=== PATIENT | male | born 1955 | race Caucasian/White ===

== ENCOUNTER 2017-02-09 13:37 | Inpatient (IN) | payer OTHER ==
[~2017-02-09] VITALS: Ht 175.3 cm; Wt 108.6 kg
--- NOTE | 2017-02-09 13:55 | RAD ---
CT head without contrast History: Confusion, weakness. Comparison: 10/10/2016.. Procedure: Axial images are obtained of the head from the skull base through the vertex without IV contrast. Findings: The ventricles and sulci are normal for the patient's age. No mass-effect, intracranial mass, midline shift, hemorrhage or obvious acute infarction is identified. Basilar cisterns are patent. Bone windows demonstrate no significant calvarial abnormality. The visualized paranasal sinuses appear clear. Small focus of hypodensity identified in the right basal ganglia likely old lacunar infarct similar to prior exam Impression: 1. No acute intracranial process. Report was called to ER at time of dictation PQRS Compliance Statement: One or more of the following individualized dose reduction techniques were utilized for this examination: 1. Automated exposure control 2. Adjustment of the mA and/or kV according to patient size 3. Use of iterative reconstruction technique faint
--- NOTE | 2017-02-09 14:01 | EKG ---
[address] [address] Test Date: 2017-02-09 Test Time: 13:57:33 Pat Name: ISAIAS CAMERON Department: Room: Gender: M Youth Care Specialist: : [id number] Requested By: JAMIE MANCIA Order Number: [id number] Reading MD: Measurements Intervals Union Rate: 66 P: 25 OK: 186 QRS: -43 QRSD: 94 T: 48 QT: 394 QTc: 415 Interpretive Statements SINUS RHYTHM ABNORMAL LEFT AXIS DEVIATION LEFT ANTERIOR FASCICULAR BLOCK ABNORMAL ECG RI6.01 Unconfirmed report No previous ECG available for comparison
--- NOTE | 2017-02-09 14:31 | RAD ---
Examination: Single frontal view the chest History: History of code stroke, shortness of breath Comparison: None available Findings: Low lung volumes and technique accentuate heart size and pulmonary vascularity. There is no acute infiltrate or visualized pneumothorax identified. A heart loop monitor projects in the left chest wall region. Impression: No acute cardiopulmonary findings
[2017-02-09 14:32] LABS: BASO # 0.1 x10^3/uL (0.0-0.2); BASO % 1 % (0-3); EOS # 0.2 x10^3/uL (0.0-0.7); EOS % 3 % (0-3); HEMOGLOBIN 14.3 g/dL (13.0-17.5); LYMPH # 0.5 x10^3/uL (1.0-4.8); LYMPH % 9 % (24-48); MEAN CORPUSCULAR HEMOGLOBIN 31 pg (25-35); MEAN CORPUSCULAR HGB CONC 35 g/dL (31-37); MEAN CORPUSCULAR VOLUME 89 fL (79-100); MONO # 0.4 x10^3/uL (0.0-1.1); MONO % 8 % (0-9); NEUT % 79 % (31-73); PLATELET COUNT 99 x10^3/uL (140-400); RED BLOOD COUNT 4.62 x10^6/uL (4.30-5.70); RED CELL DISTRIBUTION WIDTH 13.9 % (11.5-14.5)
[2017-02-09 14:45] LABS: ALBUMIN 3.4 g/dL (3.4-5.0); ALBUMIN/GLOBULIN RATIO 0.9 (1.0-1.7); CALCIUM 8.6 mg/dL (8.5-10.1); CREATININE 1.2 mg/dL (0.7-1.3); GFR 61.3; POTASSIUM 4.4 mmol/L (3.5-5.1); TOTAL BILIRUBIN 1.6 mg/dL (0.2-1.0); TOTAL PROTEIN 7.3 g/dL (6.4-8.2)
[2017-02-09] MEDS ORDERED: ONDANSETRON PF 4 MG/2 ML VIAL. IV PRN (15:15)
--- NOTE | 2017-02-09 16:10 | ED.ADGEN ---
Past History Past Medical History: Diabetes, Other Past Surgical History: Other Alcohol Use: None Drug Use: None Adult General Chief Complaint Chief Complaint Generalized weakness, altered mental status [facility] HPI Patient is a 61-year-old male presents with progressive generalized weakness with fatigue hypersomnolence over the past 3 days. She was recently discharged from [facility] for the same and was treated for hepatic encephalopathy. Patient stats states the patient has been unable to take his lactulose at home due to uncontrolled diarrhea and inability for patient to clean up after himself. Patient denies headache, fever, chills, nausea vomiting and sweats. No chest pain chest tightness shortness of breath. No flank pain, urinary frequency or urgency. No other acute symptoms or complaints. Patient's PCP is Dr. Carranza. Patient's GI specialist is Dr. Stephenson. Review of Systems Review of Systems ROS as per HPI. Current Medications Current Medications Current Medications Medications (Trade) Dose Ordered Sig/Eleuterio Start Time Stop Time Status Last Admin Dose Admin Lactulose 30 gm Q6HRS 02/09/17 18:00 Ondansetron HCl (Zofran) 4 mg PRN Q4HRS PRN 02/09/17 15:15 02/10/17 15:14 Allergies Allergies Allergies Coded Allergies Type Severity Reaction Last Updated Verified No Known Drug Allergies 02/09/17 No Physical Exam Physical Exam Constitutional: Well developed, well developed, fatigued and generally weak appearing. HENT: Normocephalic, atraumatic, bilateral external ears normal, oropharynx moist, no oral exudates, nose normal. Eyes: PERRLA, EOMI. Neck: Normal range of motion, no tenderness. Cardiovascular:Heart rate regular rhythm, no murmur. Lungs & Thorax: Bilateral breath sounds clear to auscultation. Abdomen: Bowel sounds normal, soft, no tenderness. Skin: Warm. Extremities: No tenderness. Neurologic: Somnolent, otherwise oriented. Normal motor function, normal sensory function, no focal deficits noted. Psychologic: Affect, flat Current Patient Data Vital Signs Vital Signs Date Time Temp Pulse Resp B/P (MAP) Pulse Ox O2 Delivery O2 Flow Rate FiO2 02/09/17 14:10 65 20 97 Room Air Lab Results Laboratory Tests Test 02/09/17 14:02 White Blood Count 5.0 x10^3/uL (4.0-11.0) Red Blood Count 4.62 x10^6/uL (4.30-5.70) Hemoglobin 14.3 g/dL (13.0-17.5) Hematocrit 41.0 % (39.0-53.0) Mean Corpuscular Volume 89 fL (79-100) Mean Corpuscular Hemoglobin 31 pg (25-35) Mean Corpuscular Hemoglobin Concent 35 g/dL (31-37) Red Cell Distribution Width 13.9 % (11.5-14.5) Platelet Count 99 x10^3/uL (140-400) L Neutrophils (%) (Auto) 79 % (31-73) H Lymphocytes (%) (Auto) 9 % (24-48) L Monocytes (%) (Auto) 8 % (0-9) Eosinophils (%) (Auto) 3 % (0-3) Basophils (%) (Auto) 1 % (0-3) Neutrophils # (Auto) 4.0 x10^3uL (1.8-7.7) Lymphocytes # (Auto) 0.5 x10^3/uL (1.0-4.8) L Monocytes # (Auto) 0.4 x10^3/uL (0.0-1.1) Eosinophils # (Auto) 0.2 x10^3/uL (0.0-0.7) Basophils # (Auto) 0.1 x10^3/uL (0.0-0.2) Prothrombin Time 11.6 SEC (9.4-11.4) H Prothrombin Time INR 1.1 (0.9-1.1) PTT 26 SEC (23-33) Sodium Level 140 mmol/L (136-145) Potassium Level 4.4 mmol/L (3.5-5.1) Chloride Level 106 mmol/L (98-107) Carbon Dioxide Level 28 mmol/L (21-32) Anion Gap 6 (6-14) Blood Urea Nitrogen 29 mg/dL (8-26) H Creatinine 1.2 mg/dL (0.7-1.3) Estimated GFR (Cockcroft-Gault) 61.3 BUN/Creatinine Ratio 24 (6-20) H Glucose Level 268 mg/dL (70-99) H Lactic Acid Level 1.4 mmol/L (0.4-2.0) Calcium Level 8.6 mg/dL (8.5-10.1) Total Bilirubin 1.6 mg/dL (0.2-1.0) H Aspartate Amino Transferase (AST) 24 U/L (15-37) Alanine Aminotransferase (ALT) 36 U/L (16-63) Alkaline Phosphatase 83 U/L (46-116) Ammonia 99 mcmol/L (11-34) H Troponin I Quantitative < 0.017 ng/mL (0-0.055) Total Protein 7.3 g/dL (6.4-8.2) Albumin 3.4 g/dL (3.4-5.0) Albumin/Globulin Ratio 0.9 (1.0-1.7) L EKG EKG [EKG: NS, rate 66, LAFB, no acute ST-T wave changes.] Radiology/Procedures Radiology/Procedures [ET head: No acute intracranial disease] Course & Med Decision Making Course & Med Decision Making Pertinent Labs and Imaging studies reviewed. (See chart for details) [Had negative, no focal neurologic deficits. Patient's presentations consistent with hepatic encephalopathy, ammonia 99. Dr. Giordano to admit.] Final Impression Final Impression [1. Encephalopathy] Problems: Dragon Disclaimer Dragon Disclaimer This electronic medical record was generated, in whole or in part, using a voice recognition dictation system. JAMIE MANCIA DO February 09, 2017 16:10
[2017-02-09 16:47] LABS: CLARITY,URINE CLEAR; COLOR,URINE YELLOW; GLUCOSE,URINE 500 mg/dL (NEG)
[2017-02-09 16:48] LABS: BILIRUBIN,URINE NEG (NEG); NITRITE,URINE NEG (NEG); UROBILINOGEN,URINE 0.2 mg/dL (0.2 mg/dL)
[2017-02-09 16:57] LABS: BACTERIA,URINE 0 /HPF (0-FEW); SQUAMOUS EPITHELIAL CELL,UR FEW /LPF
[2017-02-09 17:28] VITALS: BP 157/80
--- NOTE | 2017-02-09 17:28 | ACF ---
Admission Criteria Forms MENTAL STATUS CHANGE Clinical Indications for Inpatient Care (Place 'X' for any and all applicable criteria): Ongoing inpatient care may be needed for 1 or more of the following(1)(2)(3)(5)( 6): [X]I. Suspected serious etiology (eg, medical disorder, LUBE MAN event) of altered mental status [ ]II. Danger to self or others not manageable at lower level of care [ ]III. Grave disability (eg, inability to perform self care necessary at lower level of care) [ ]IV. Agitation or inappropriate behavior interfering with care for primary condition (eg, attempting to discontinue lines or drains prematurely, unable to cooperate with respiratory care) [ ]V. Delirium [A] [D][E] as described by 1 or more of the following(26): [ ]a) Delirium due to alcohol or sedative [F] withdrawal [ ]b) Delirium of uncertain etiology that has not responded to appropriate empiric treatment [ ]c) Delirium that prevents performance of a life-sustaining function (eg, feeding or hydrating oneself) [ ]. General contraindications and/or Inappropriate clinical situations for Observational Care in patients with Mental Status Change, when ANY ONE of the following is required: [ ]a) Prediction of prolongation of LOS based on ANY ONE of the following may be considered as a contraindication for observational care 2, 3, 4, 5, 6, 7, 8, 9, 10, 11 [ ]i) Age > 65 yrs. [ ]ii) Patient arriving by ambulance [ ]iii) Patient with high acuity [ ]iv) Patient requiring vital sign monitoring [ ]v) Patient on IV medication [ ]b) Systolic blood pressures greater than or equal to 180mmHg 3, 12 [ ]c) Patient with altered mental status including delirium and other alteration of consciousness, (3) [ ]d) Patient whose discharge disposition will be to a alf home or rehabilitation home should not be managed in Emergency Department Observation Unit. CMS rule requires 3 days hospital stay before such placement.3,13 [ ]e) Patient with failure to thrive due to broad array of etiologies 3,16,17 [ ]f) Inability to ambulate 3,14 Extended stay beyond goal length of stay for the primary condition may be needed until ALL of the following are present(3)(5): [ ]a) Underlying medical etiology of mental status change is absent, or has been established and adequately treated [ ]b) Danger to self or others is absent or manageable at lower level of care. [ ]c) Behavior crisis management, including physical or chemical restraints, is not required or available at lower level of car [ ]d) Substance or alcohol withdrawal is absent or manageable at lower level of care. [ ]e) Behavioral symptoms (eg, agitation, somnolence, inappropriate behavior) are absent, or are manageable at lower level of care. The original [facility] content created by [facility] has been revised. The portions of the content which have been revised are identified through the use of italic text or in bold, and [facility] has neither reviewed nor approved the modified material. All other unmodified content is copyright [facility]. Please see references footnoted in the original [facility] edition 2016 Admission Criteria Met?: Yes MAIDA BOCANEGRA February 09, 2017 17:28
[2017-02-09] MEDS: LACTULOSE 20 GM/30 ML SOLUTION. PO SCH (18:10)
--- NOTE | 2017-02-09 19:16 | NUR ---
The patient, RAZ AGUILAR, 61 y/o, M admitted by JONA SOLIS MD, was given written information regarding hospital policies, unit procedures and contact persons. Patient admitted to room 117 from the ED and arrived at approximately 1715 via EMS. Valuables were checked and left in room with patient. Vital signs assessed and patient made comfortable.
[2017-02-09] MEDS ORDERED: GLIM4TAB2 PO (21:06)
[2017-02-09] MEDS ORDERED: FOLI1TAB16 PO (21:06)
[2017-02-09] MEDS ORDERED: TAMS0.4C2 PO (21:06)
[2017-02-09] MEDS ORDERED: SUCR1TAB PO (21:06)
[2017-02-09] MEDS ORDERED: AMLO10TA2 PO (21:06)
[2017-02-09] MEDS ORDERED: INSU100I27 SUBCUT (21:06)
[2017-02-09] MEDS ORDERED: FURO40TA4 PO (21:06)
[2017-02-09] MEDS ORDERED: LINA5TAB4 PO (21:06)
[2017-02-09] MEDS ORDERED: METO25TA4 PO (21:06)
[2017-02-09] MEDS ORDERED: OMEP40CA5 PO (21:06)
[2017-02-09] MEDS ORDERED: GABA600T2 PO (21:06)
[2017-02-09] MEDS ORDERED: INSU100I17 SUBCUT (21:06)
[2017-02-09] MEDS ORDERED: AZIT250T6 PO (21:06)
[2017-02-09] MEDS ORDERED: RAMI10CA PO (21:06)
[2017-02-09] MEDS ORDERED: OMEG-33 PO (21:21)
[2017-02-09] MEDS ORDERED: VIT1CAPS27 PO (21:21)
[2017-02-09] MEDS ORDERED: MAGN400C PO (21:21)
[2017-02-09] MEDS ORDERED: MULT1TAB52 PO (21:21)
[2017-02-09] MEDS ORDERED: SUCRALFATE 1 GM TABLET. PO PRN (22:30)
[2017-02-09 22:45] VITALS: BP 153/64
[2017-02-10] MEDS: LACTULOSE 20 GM/30 ML SOLUTION. PO SCH ×5 (00:56→23:06)
[2017-02-10 05:45] VITALS: BP 144/59
[2017-02-10] MEDS ORDERED: AZITHROMYCIN 250 MG TABLET. PO SCH (09:00)
[2017-02-10] MEDS ORDERED: [UNRECOGNIZED DRUG - OTHER] PO SCH (09:00)
[2017-02-10] MEDS: PANTOPRAZOLE 40 MG TABLET. PO SCH (09:15)
[2017-02-10] MEDS: FUROSEMIDE 20 MG TABLET PO SCH ×2 (09:15→20:55)
[2017-02-10] MEDS: GLIMEPIRIDE 4 MG TABLET PO SCH ×2 (09:15→16:47)
[2017-02-10] MEDS: FOLIC ACID 1 MG TABLET PO SCH (09:15)
[2017-02-10] MEDS: rifAXIMin 550 MG TABLET PO SCH ×2 (09:15→20:55)
[2017-02-10] MEDS: MULTIVITAMIN with MINERAL TABLET. PO SCH (09:15)
[2017-02-10] MEDS: LISINOPRIL 20 MG TABLET PO SCH (09:16)
[2017-02-10] MEDS: amLODIPine BESYLATE 10 MG TABLET PO SCH (09:16)
[2017-02-10] MEDS: OMEGA-3 FATTY ACIDS/FISH OIL 1,000 MG CAPSULE. PO SCH (09:16)
[2017-02-10] MEDS: MAGNESIUM OXIDE 400 MG TABLET PO SCH (09:16)
[2017-02-10] MEDS: METOPROLOL TART IMMED RELEASE 25 MG TABLET PO SCH ×2 (09:16→14:03)
[2017-02-10] MEDS: GABAPENTIN 400 MG CAPSULE. PO SCH ×2 (09:17→20:55)
[2017-02-10] MEDS: TAMSULOSIN 0.4 MG CAP.ER.24H. PO SCH (09:17)
[2017-02-10] MEDS: LINAGLIPTIN 5 MG TABLET PO SCH (09:17)
[2017-02-10] MEDS: INSULIN ASPART 300 UNITS/3 ML INSULN.PEN SQ SCH ×3 (09:29→16:51)
[2017-02-10] MEDS ORDERED: TEST30SO TD (09:39)
[2017-02-10 10:46] VITALS: BP 177/70
[2017-02-10] MEDS: TESTOSTERONE 30 MG TD SCH (12:05)
[2017-02-10] MEDS: NEOMY/BACITR/POLYMYXIN OINT PACKET. TP SCH ×2 (12:06→20:55)
[2017-02-10] MEDS: INSULIN DETEMIR 300 UNITS/3 ML INSULN.PEN. SQ SCH (12:18)
[2017-02-10 15:37] VITALS: BP 140/66
[2017-02-10 19:35] VITALS: BP 146/68
[2017-02-10 22:54] VITALS: BP 144/70
[2017-02-11] MEDS: LACTULOSE 20 GM/30 ML SOLUTION. PO SCH ×4 (05:16→23:54)
[2017-02-11 05:30] VITALS: BP 144/60
[2017-02-11 06:20] LABS: BASO # 0.1 x10^3/uL (0.0-0.2); BASO % 1 % (0-3); EOS # 0.4 x10^3/uL (0.0-0.7); EOS % 7 % (0-3); HEMATOCRIT 44.6 % (39.0-53.0); HEMOGLOBIN 15.4 g/dL (13.0-17.5); LYMPH # 0.9 x10^3/uL (1.0-4.8); LYMPH % 16 % (24-48); MEAN CORPUSCULAR HEMOGLOBIN 31 pg (25-35); MEAN CORPUSCULAR HGB CONC 35 g/dL (31-37); MEAN CORPUSCULAR VOLUME 89 fL (79-100); MONO # 0.6 x10^3/uL (0.0-1.1); MONO % 10 % (0-9); NEUT # 3.6 x10^3uL (1.8-7.7); NEUT % 66 % (31-73); PLATELET COUNT 109 x10^3/uL (140-400); RED BLOOD COUNT 4.99 x10^6/uL (4.30-5.70); RED CELL DISTRIBUTION WIDTH 14.2 % (11.5-14.5); WHITE BLOOD COUNT 5.4 x10^3/uL (4.0-11.0)
[2017-02-11 06:34] LABS: ALBUMIN 3.4 g/dL (3.4-5.0); ALBUMIN/GLOBULIN RATIO 0.9 (1.0-1.7); CALCIUM 9.1 mg/dL (8.5-10.1); CREATININE 1.2 mg/dL (0.7-1.3); GFR 61.3; POTASSIUM 4.5 mmol/L (3.5-5.1); TOTAL BILIRUBIN 2.4 mg/dL (0.2-1.0); TOTAL PROTEIN 7.4 g/dL (6.4-8.2)
[2017-02-11] MEDS: MAGNESIUM OXIDE 400 MG TABLET PO SCH (09:08)
[2017-02-11] MEDS: MULTIVITAMIN with MINERAL TABLET. PO SCH (09:08)
[2017-02-11] MEDS: amLODIPine BESYLATE 10 MG TABLET PO SCH (09:09)
[2017-02-11] MEDS: LINAGLIPTIN 5 MG TABLET PO SCH (09:09)
[2017-02-11] MEDS: METOPROLOL TART IMMED RELEASE 25 MG TABLET PO SCH ×2 (09:09→14:29)
[2017-02-11] MEDS: FOLIC ACID 1 MG TABLET PO SCH (09:09)
[2017-02-11] MEDS: OMEGA-3 FATTY ACIDS/FISH OIL 1,000 MG CAPSULE. PO SCH (09:10)
[2017-02-11] MEDS: GLIMEPIRIDE 4 MG TABLET PO SCH ×2 (09:10→17:12)
[2017-02-11] MEDS: FUROSEMIDE 20 MG TABLET PO SCH ×2 (09:10→20:19)
[2017-02-11] MEDS: GABAPENTIN 400 MG CAPSULE. PO SCH ×2 (09:10→20:19)
[2017-02-11] MEDS: TAMSULOSIN 0.4 MG CAP.ER.24H. PO SCH (09:10)
[2017-02-11] MEDS: PANTOPRAZOLE 40 MG TABLET. PO SCH (09:10)
[2017-02-11] MEDS: LISINOPRIL 20 MG TABLET PO SCH (09:10)
[2017-02-11] MEDS: NEOMY/BACITR/POLYMYXIN OINT PACKET. TP SCH ×2 (09:11→20:19)
[2017-02-11] MEDS: rifAXIMin 550 MG TABLET PO SCH ×2 (09:11→20:19)
[2017-02-11] MEDS: TESTOSTERONE 30 MG TD SCH (09:11)
[2017-02-11] MEDS: INSULIN ASPART 300 UNITS/3 ML INSULN.PEN SQ SCH ×3 (09:19→17:17)
[2017-02-11 11:27] VITALS: BP 167/82
[2017-02-11] MEDS: INSULIN DETEMIR 300 UNITS/3 ML INSULN.PEN. SQ SCH (12:43)
[2017-02-11 19:25] VITALS: BP_SYST 121; BP_SYST 147; BP_DIAS 64; BP_DIAS 86
--- NOTE | 2017-02-11 19:31 | PN ---
DATE: 02/11/2017 SUBJECTIVE: A 61-year-old male in with metabolic encephalopathy due to elevated ammonia levels. The patient is feeling better. His ammonia level is pending for today came in, but the patient is still very lethargic. OBJECTIVE: VITAL SIGNS: Blood pressure 160/82, respiratory rate 20, pulse 60, afebrile. GENERAL: The patient is alert and oriented. LUNGS: Diminished throughout, but clear. CARDIOVASCULAR: Regular sinus rhythm. ABDOMEN: Soft, nontender, protuberant and positive active bowel sounds. EXTREMITIES: No clubbing, cyanosis. +2 pitting edema. NEUROLOGICAL: He is stable, still very somnolence as he was when he first came in. In any case, the patient will be monitored carefully and make further evaluation on him as indicated and continue on the lactulose, Xifaxan 550 mg q.12 for his elevated ammonia levels. LABORATORY DATA: Labs look otherwise basically stable as far as his electrolytes and so forth. PLAN: We will continue to monitor him accordingly make further evaluation at that ammonia level. IMPRESSION: Metabolic encephalopathy, continue as noted above. JONA SOLIS MD DR: NIKI/rito JOB#: [id number] / [id number]
[2017-02-12] MEDS: LACTULOSE 20 GM/30 ML SOLUTION. PO SCH ×4 (05:24→21:28)
[2017-02-12 05:53] VITALS: BP 160/62
[2017-02-12] MEDS: PANTOPRAZOLE 40 MG TABLET. PO SCH (07:52)
[2017-02-12] MEDS: LISINOPRIL 20 MG TABLET PO SCH (07:52)
[2017-02-12] MEDS: INSULIN ASPART 300 UNITS/3 ML INSULN.PEN SQ SCH ×3 (07:59→16:47)
[2017-02-12] MEDS: OMEGA-3 FATTY ACIDS/FISH OIL 1,000 MG CAPSULE. PO SCH (09:03)
[2017-02-12] MEDS: GLIMEPIRIDE 4 MG TABLET PO SCH ×2 (09:03→16:43)
[2017-02-12] MEDS: FUROSEMIDE 20 MG TABLET PO SCH (09:04)
[2017-02-12] MEDS: TAMSULOSIN 0.4 MG CAP.ER.24H. PO SCH (09:04)
[2017-02-12] MEDS: FOLIC ACID 1 MG TABLET PO SCH (09:04)
[2017-02-12] MEDS: METOPROLOL TART IMMED RELEASE 25 MG TABLET PO SCH ×2 (09:05→14:57)
[2017-02-12] MEDS: GABAPENTIN 400 MG CAPSULE. PO SCH ×2 (09:05→21:29)
[2017-02-12] MEDS: MAGNESIUM OXIDE 400 MG TABLET PO SCH (09:05)
[2017-02-12] MEDS: rifAXIMin 550 MG TABLET PO SCH ×2 (09:06→21:31)
[2017-02-12] MEDS: LINAGLIPTIN 5 MG TABLET PO SCH (09:06)
[2017-02-12] MEDS: MULTIVITAMIN with MINERAL TABLET. PO SCH (09:06)
[2017-02-12] MEDS: amLODIPine BESYLATE 10 MG TABLET PO SCH (09:06)
[2017-02-12] MEDS: NEOMY/BACITR/POLYMYXIN OINT PACKET. TP SCH ×2 (09:07→21:28)
[2017-02-12] MEDS: TESTOSTERONE 30 MG TD SCH (09:13)
[2017-02-12] MEDS: BUMETANIDE 2.5 MG/10 ML VIAL. IVP SCH ×2 (11:32→14:57)
[2017-02-12 11:45] VITALS: BP 128/61
[2017-02-12] MEDS: INSULIN DETEMIR 300 UNITS/3 ML INSULN.PEN. SQ SCH (12:00)
[2017-02-12 14:58] VITALS: BP 148/65
--- NOTE | 2017-02-12 20:22 | NUR ---
Patient assessed, care plan reviewed, continue to monitor.
[2017-02-12 20:25] VITALS: BP 144/66
--- NOTE | 2017-02-13 03:40 | PN ---
DATE: 02/09/2017 SUBJECTIVE: A 61-year-old gentleman with history of FOX and has metabolic encephalopathy with elevated ammonia levels. The patient has been coming down on such. He is making good progress overall with it. He is feeling somewhat better, although he does have a +2 to 3 pitting edema in his legs. The patient will be switched over to IV Lasix. His intake has been extremely high. I told him to cut down on it and we need to cutdown on his fluid intake. Changed him over to butanamide for IV butanamide versus the furosemide; otherwise the patient is alert and oriented x3. OBJECTIVE: VITAL SIGNS: Blood pressure 140/65, respiration 16, pulse 60, and afebrile. GENERAL: The patient is alert and oriented x 3. Speech is fluent. LUNGS: Clear. CARDIOVASCULAR: Stable. EXTREMITIES: Legs show +3 pitting edema. PLAN: As noted, cutdown on some of the fluids. Increase his butanamide and get a different diuretic instead of the Lasix. Otherwise, he is to continue on present drug regimen with lactose and with the Xifaxan and the IV medication Lasix as indicated. Monitoring his blood sugars as well. JONA SOLIS MD DR: NIKI/rito JOB#: [id number] / [id number]
[2017-02-13 05:49] VITALS: BP 154/65
[2017-02-13] MEDS: LACTULOSE 20 GM/30 ML SOLUTION. PO SCH ×2 (05:52→12:10)
[2017-02-13 05:56] LABS: BASO # 0.1 x10^3/uL (0.0-0.2); BASO % 1 % (0-3); EOS # 0.3 x10^3/uL (0.0-0.7); EOS % 4 % (0-3); HEMATOCRIT 44.2 % (39.0-53.0); HEMOGLOBIN 15.7 g/dL (13.0-17.5); LYMPH % 11 % (24-48); MEAN CORPUSCULAR HEMOGLOBIN 31 pg (25-35); MEAN CORPUSCULAR HGB CONC 36 g/dL (31-37); MEAN CORPUSCULAR VOLUME 87 fL (79-100); MONO # 0.9 x10^3/uL (0.0-1.1); MONO % 10 % (0-9); NEUT # 6.5 x10^3uL (1.8-7.7); NEUT % 74 % (31-73); PLATELET COUNT 126 x10^3/uL (140-400); RED BLOOD COUNT 5.06 x10^6/uL (4.30-5.70); RED CELL DISTRIBUTION WIDTH 14.2 % (11.5-14.5); WHITE BLOOD COUNT 8.8 x10^3/uL (4.0-11.0)
[2017-02-13 06:02] LABS: CALCIUM 8.9 mg/dL (8.5-10.1); CREATININE 1.3 mg/dL (0.7-1.3); GFR 55.9; POTASSIUM 4.3 mmol/L (3.5-5.1)
[2017-02-13] MEDS: rifAXIMin 550 MG TABLET PO SCH (08:09)
[2017-02-13] MEDS: MULTIVITAMIN with MINERAL TABLET. PO SCH (08:09)
[2017-02-13] MEDS: amLODIPine BESYLATE 10 MG TABLET PO SCH (08:09)
[2017-02-13] MEDS: LINAGLIPTIN 5 MG TABLET PO SCH (08:09)
[2017-02-13] MEDS: GLIMEPIRIDE 4 MG TABLET PO SCH (08:09)
[2017-02-13] MEDS: TAMSULOSIN 0.4 MG CAP.ER.24H. PO SCH (08:09)
[2017-02-13] MEDS: OMEGA-3 FATTY ACIDS/FISH OIL 1,000 MG CAPSULE. PO SCH (08:10)
[2017-02-13] MEDS: MAGNESIUM OXIDE 400 MG TABLET PO SCH (08:10)
[2017-02-13] MEDS: LISINOPRIL 20 MG TABLET PO SCH (08:10)
[2017-02-13] MEDS: METOPROLOL TART IMMED RELEASE 25 MG TABLET PO SCH (08:10)
[2017-02-13] MEDS: PANTOPRAZOLE 40 MG TABLET. PO SCH (08:10)
[2017-02-13] MEDS: NEOMY/BACITR/POLYMYXIN OINT PACKET. TP SCH (08:11)
[2017-02-13] MEDS: BUMETANIDE 2.5 MG/10 ML VIAL. IVP SCH (08:11)
[2017-02-13] MEDS: GABAPENTIN 400 MG CAPSULE. PO SCH (08:11)
[2017-02-13] MEDS: INSULIN ASPART 300 UNITS/3 ML INSULN.PEN SQ SCH ×2 (08:16→12:19)
[2017-02-13] MEDS: TESTOSTERONE 30 MG TD SCH (08:27)
[2017-02-13] MEDS: FOLIC ACID 1 MG TABLET PO SCH (09:55)
[2017-02-13 11:47] VITALS: BP 114/51
[2017-02-13] MEDS ORDERED: LACT20SO PO (12:16)
[2017-02-13] MEDS ORDERED: NEOM1OIN6 TP (12:16)
[2017-02-13] MEDS: INSULIN DETEMIR 300 UNITS/3 ML INSULN.PEN. SQ SCH (12:18)
[2017-02-13] MEDS ORDERED: BUME2TAB PO (12:36)
--- NOTE | 2017-02-13 14:28 | NUR ---
pt and verbalized understanding of dc instructions. iv d/c'd tip intact. pt left unit via w/c.
== END 2017-02-13 14:30 | disposition still patient (30) | DRG 71 ==
LOC: ER 13:37 → 1 SOUTH 15:18
PROVIDERS: ADMIT Family Medicine; ATTEND Family Medicine
DX: G93.41 Metabolic encephalopathy (principal); E72.29 Other disorders of urea cycle metabolism; R53.83 Other fatigue; E11.610 Type 2 diabetes mellitus with diabetic neuropathic arthropathy; E11.628 Type 2 diabetes mellitus with other skin complications; E61.1 Iron deficiency; Z87.01 Personal history of pneumonia (recurrent); Z86.19 Personal history of other infectious and parasitic diseases; Z90.49 Acquired absence of other specified parts of digestive tract
CPT/HCPCS: 36415; 70450; 71010; 80048; 80053; 81001; 82140; 82947; 83605; 84484; 85027; 85610; 85730; 93005; J1815; 99285-25

== ENCOUNTER → 2017-02-16 | Outpatient (CLI) | payer OTHER ==
[2017-02-13 11:47] VITALS: BP 114/51
[~2017-02-16] MED LIST: AMLO10TA2 PO; AZIT250T6 PO; BUME2TAB PO; FOLI1TAB16 PO; FURO40TA4 PO; GABA600T2 PO; GLIM4TAB2 PO; INSU100I17 SUBCUT; INSU100I27 SUBCUT; LACT20SO PO; LINA5TAB4 PO; MAGN400C PO; METO25TA4 PO; MULT1TAB52 PO; NEOM1OIN6 TP; OMEG-33 PO; OMEP40CA5 PO; RAMI10CA PO; SUCR1TAB PO; TAMS0.4C2 PO; TEST30SO TD; VIT1CAPS27 PO
[2017-02-16 09:48] LABS: BASO % 1 % (0-3); EOS # 0.4 x10^3/uL (0.0-0.7); EOS % 7 % (0-3); HEMATOCRIT 40.2 % (39.0-53.0); HEMOGLOBIN 14.2 g/dL (13.0-17.5); LYMPH # 0.8 x10^3/uL (1.0-4.8); LYMPH % 13 % (24-48); MEAN CORPUSCULAR HEMOGLOBIN 31 pg (25-35); MEAN CORPUSCULAR HGB CONC 35 g/dL (31-37); MEAN CORPUSCULAR VOLUME 87 fL (79-100); MONO # 0.7 x10^3/uL (0.0-1.1); MONO % 11 % (0-9); NEUT # 4.3 x10^3uL (1.8-7.7); NEUT % 68 % (31-73); PLATELET COUNT 124 x10^3/uL (140-400); RED CELL DISTRIBUTION WIDTH 14.4 % (11.5-14.5); WHITE BLOOD COUNT 6.4 x10^3/uL (4.0-11.0)
[2017-02-16 09:49] LABS: BASO # 0.1 x10^3/uL (0.0-0.2)
[2017-02-16 09:58] LABS: ALBUMIN 3.4 g/dL (3.4-5.0); ALBUMIN/GLOBULIN RATIO 0.9 (1.0-1.7); CALCIUM 8.2 mg/dL (8.5-10.1); CREATININE 1.8 mg/dL (0.7-1.3); GFR 38.4; POTASSIUM 5.3 mmol/L (3.5-5.1); TOTAL BILIRUBIN 1.3 mg/dL (0.2-1.0); TOTAL PROTEIN 7.4 g/dL (6.4-8.2)
== END ==
LOC: LAB 09:05
PROVIDERS: ATTEND Family Medicine
DX: E11.628 Type 2 diabetes mellitus with other skin complications (principal); R53.1 Weakness
CPT/HCPCS: 36415; 80053; 85027